=== PATIENT | male | born 1965 | race Two or more races ===

== ENCOUNTER 2020-06-20 15:13 | Emergency (ER) | payer BC, OTHER ==
[~2020-06-20] VITALS: Ht 177.8 cm; Wt 77.1 kg
[2020-06-20] MEDS ORDERED: ASPirin 81 mg TAB PO ONE (15:45)
[2020-06-20] MEDS ORDERED: METOPROLOL TARTRATE 50 MG TAB PO ONE (15:45)
[2020-06-20 15:58] LABS: Urine WBC None Seen /hpf (0 - 3)
[2020-06-20 16:20] LABS: Urine Bacteria NONE SEEN /hpf (None Seen); Urine Blood Negative /uL (Negative); Urine Specific Gravity 1.005 (1.001-1.035)
[2020-06-20 16:22] LABS: Basophils # (auto) 0 10 ^3/uL (0-0.2); Basophils % (auto) 0.4 % (0.0-2.0); Eosinophils # (auto) 0 10 ^3/uL (0-0.8); Eosinophils % (auto) 0.2 % (0.0-7.0); Hematocrit 40.5 % (41.0-53.0); Hemoglobin 13.8 g/dL (13.5-17.5); Lymphocytes # (auto) 1.1 10 ^3/uL (0.4-5.4); Lymphocytes % (auto) 12.9 % (10.0-50.0); Mean Corpuscular Hemoglobin 30.8 pg (28.0-32.0); Mean Corpuscular Hgb Conc. 34.2 g/dL (32.0-36.0); Monocytes # (auto) 0.6 10 ^3/uL (0-1.3); Monocytes % (auto) 7.4 % (0.0-12.0); Neutrophils # (auto) 6.5 10 ^3/uL (1.6-8.6); Neutrophils % (auto) 79.1 % (37.0-80.0); Nucleated Red Blood Cells % 0.1 %; Platelet Count (auto) 261 10^3/uL (140-450); Red Cell Distribution Width 13.6 % (11.8-14.3); White Blood Cell 8.2 10^3/uL (4.4-10.8)
[2020-06-20] MEDS ORDERED: ASPirin 81 mg TAB ONE (16:27)
[2020-06-20 16:36] LABS: Albumin 3.7 g/dL (3.4-5.0); Calcium 7.9 mg/dL (8.5-10.1); Potassium 3.4 mmol/L (3.5-5.1)
[2020-06-20 16:41] LABS: BUN/Creatinine Ratio 19.4; Bilirubin, Total 0.5 mg/dL (0.2-1.0); Total Protein 7.1 g/dL (6.4-8.2)
[2020-06-20] MEDS ORDERED: POTASSIUM EFFERVESENT TAB 25 MEQ PO ONE (17:15)
[2020-06-20 17:21] VITALS: BP 141/86
== END 2020-06-20 17:30 | disposition home or self-care (01) ==
LOC: EDBD 15:13 → ER 15:20
DX: R00.0 Tachycardia, unspecified (principal); E87.6 Hypokalemia; I10 Essential (primary) hypertension
CPT/HCPCS: 36415; 71045; 80053; 81001; 84484; 85025; 93005